=== PATIENT | male | born 1985 | race Asian ===

== ENCOUNTER 2019-03-30 15:08 | Emergency (ER) | payer MEDICAID ==
[~2019-03-30] VITALS: Ht 167.6 cm; Wt 59.0 kg
[2019-03-30 15:22] VITALS: BP_SYST 116
[2019-03-30] MEDS ORDERED: NACL 0.9% 1,000 ML IV ONE (15:42)
--- NOTE | 2019-03-30 16:01 | NUR ---
CALLED FOR RADIOLOGY TESTING AND PT IS NOT IN WAITING ROOM.
[2019-03-30 16:19] LABS: BASOPHILS # (AUTO) 0.1 K/uL (0.0-0.2); EOSINOPHILS # (AUTO) 0.3 K/uL (0.0-0.4); EOSINOPHILS % (AUTO) 3.9 % (0.0-4.0); HEMATOCRIT 48.2 % (36-54); HEMOGLOBIN 16.4 g/dL (14.0-18.0); LYMPHOCYTES # (AUTO) 1.3 K/uL (1.0-5.5); LYMPHOCYTES % (AUTO) 18.8 % (20.5-51.5); MEAN CORPUSCULAR HEMOGLOBIN 31 pg (27-31); MEAN CORPUSCULAR HGB CONC 34 % (32-36); MEAN CORPUSCULAR VOLUME 92 fL (79.0-98.0); MONOCYTES # (AUTO) 0.6 K/uL (0.0-1.0); MONOCYTES % (AUTO) 8.3 % (1.7-9.3); NEUTROPHILS # (AUTO) 4.7 K/uL (1.8-7.7); PLATELET COUNT (AUTO) 195 K/uL (130-430); RED BLOOD CELL COUNT(AUTO) 5.23 MIL/uL (4.2-6.2); RED CELL DISTRIBUTION WIDTH 13.3 % (9.0-15.0); WHITE BLOOD COUNT (AUTO) 6.8 K/uL (4.8-10.8)
--- NOTE | 2019-03-30 16:30 | NUR ---
RETURNED AND HAD BLOOD WORK DONE. AWAITING OPEN BED.
[2019-03-30 16:39] LABS: INR 1.3 (0.80-1.20); PROTHROMBIN TIME 13.4 SECS (9.5-12.5)
[2019-03-30 16:40] LABS: CALCIUM 8.8 mg/dL (8.4-11.0); CREATININE 0.82 mg/dL (0.55-1.30); POTASSIUM 3.6 mmol/L (3.5-5.1)
[2019-03-30 16:47] LABS: ALBUMIN 4.1 g/dL (3.4-4.8); TOTAL BILIRUBIN 0.6 mg/dL (0.0-1.0)
--- NOTE | 2019-03-30 17:31 | NUR ---
PT IN HALLWAY AWAITING OPEN BED.
--- NOTE | 2019-03-30 18:01 | NUR ---
CALLED FOR REPEAT BLOOD WORK, PT UNABLE TO BE FOUND. FRONT OF HOSPITAL CHECKED AND WAITING ROOM, UNABLE TO LOCATE PT.
--- NOTE | 2019-03-30 18:17 | NUR ---
CALLED TO COME TO ROOM #7, UNABLE TO LOCATE PT AT THIS TIME.
--- NOTE | 2019-03-30 18:28 | NUR ---
CALLED TO COME TO ROOM #7, UNABLE TO LOCATE PT.
--- NOTE | 2019-03-30 18:40 | NUR ---
PT IS LEFT WITHOUT BEING SEEN
== END 2019-03-30 18:40 | disposition left against medical advice (07) ==
LOC: SED 15:08
DX: R10.9 Unspecified abdominal pain (principal); Z53.21 Procedure and treatment not carried out due to patient leaving prior to being seen by health care provider
CPT/HCPCS: 36415; 71045; 80053; 82150-TC; 83605; 83690-TC; 85025; 85610-TC; 85730-TC; 87040-TC